=== PATIENT | male | born 1975 | race Caucasian/White ===

== ENCOUNTER 2017-10-19 09:09 | Outpatient (CLI) | payer BC ==
--- NOTE | 2017-10-19 10:15 | RAD ---
PA AND LATERAL CHEST: Indication: Dyspnea. Comparison: None. FINDINGS: There is mild thoracolumbar scoliosis. The lungs are clear. Cardiomediastinal silhouette is normal. N o acute osseous abnormality is evident. IMPRESSION: No acute cardiopulmonary abnormality. POS: [facility]
== END 2017-10-19 09:10 | disposition home or self-care (01) ==
LOC: RAD 09:09
PROVIDERS: ATTEND Internal Medicine Critical Care Medicine
DX: R06.00 Dyspnea, unspecified (principal)
CPT/HCPCS: 71046

== ENCOUNTER 2018-06-19 22:32 | Day surgery (SDC) | payer BC ==
[~2018-06-19 22:32] MED LIST: Dexamethasone 20 MG/5 ML VIAL ONE; Lidocaine 1% PF 5 ML VIAL ONE; Ondansetron HCl/PF 4 MG/2 ML Vial ONE; PROPOFOL 200 MG/20 ML VIAL ONE; Succinylcholine Chloride 20 MG/ML 10 ml SYRINGE FS ONE
[2018-06-19] MEDS ORDERED: Midazolam HCl 2 mg/2 ml Vial ONE (22:39)
[2018-06-19] MEDS ORDERED: Fentanyl 100 MCG/2 ML VIAL ONE (22:39)
--- NOTE | 2018-06-20 04:04 | OP ---
PREOPERATIVE DIAGNOSIS: Esophageal foreign body. PROCEDURE IN DETAIL: After informed consent was obtained, the patient was placed in left lateral dec ubitus position. Anesthesia was administered per the Anesthesia Department. Forward-viewing endosco pe was inserted into the esophagus under direct visualization with ease and passed to the mid esophag us, where a foreign body was noted. This foreign body was removed in piecemeal fashion with snare. Scope was then passed to the second portion of the duodenum. Second portion of duodenum and duodenal bulb were normal. The stomach had a large amount of retained gastric contents, so no further visual ization of stomach could be achieved. The esophagus showed diffuse narrowing, particularly in the mi desophagus with passage of the therapeutic upper endoscope, there was a mid esophageal tear. No furt her dilatation was performed. ASSESSMENT: 1. Esophageal foreign body - status post extraction. 2. Mucosal changes consistent with eosinophilic esophagitis. 3. Retained gastric contents. 4- Six-week course of fluticasone. RECOMMENDATIONS: Repeat EGD and dilatation as an outpatient.
--- NOTE | 2018-06-20 05:27 | HP ---
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 This has happened in the past and underwent an evaluation by Dr. Kelley in 2010, which revealed eosinophilic esophagitis. The patient underwent an EGD, but no dilatation was performed. He reports over the last few weeks, he pollack s been noticing more sticking. He has not lost any weight. No fever or chills. PAST MEDICAL HISTORY: None. PAST SURGICAL HISTORY: Includes tubes in the ears, tonsillectomy. MEDICATIONS: None. ALLERGIES: None. SOCIAL HISTORY: Does not smoke or drink. FAMILY HISTORY: Negative for GI or liver disease. REVIEW OF SYSTEMS: Ten-systems were reviewed and were negative except for above. PHYSICAL EXAMINATION: GENERAL: Shows a well-developed, well-nourished white male. VITAL SIGNS: Stable. He is afebrile. HEENT: Unremarkable. NECK: Supple. CHEST: Clear. CARDIOVASCULAR: Regular rate and rhythm without murmurs or gallops. ABDOMEN: Soft, nontender, without organomegaly or masses. Bowel sounds present and normoactive. RECTAL: Deferred. EXTREMITIES: Normal. NEUROLOGIC: Nonfocal. ASSESSMENT: Esophageal foreign body. RECOMMENDATIONS: EGD.
== END 2018-06-20 00:25 | disposition home or self-care (01) ==
LOC: SDC/OP 22:32
PROVIDERS: ATTEND Internal Medicine Gastroenterology
PROC: 0DC58ZZ Extirpation of Matter from Esophagus, Via Natural or Artificial Opening Endoscopic (ICD-10-PCS; principal; 2018-06-19)
DX: T18.128A Food in esophagus causing other injury, initial encounter (principal)
CPT/HCPCS: J1100; J2001; J2250; J2405; J2704; J3010